=== PATIENT | male | born 1980 | race Caucasian/White ===

== ENCOUNTER 2017-11-02 20:22 | Emergency (ER) | payer OTHER ==
[~2017-11-02] VITALS: Ht 185.4 cm; Wt 117.9 kg
[~2017-11-02 20:22] MED LIST: CYCL10 PO; GABA100 PO; HYDACE10B PO; HYDACE5 PO; HYDR1TAB94 PO; IBUP600 PO; Keflex500 MG PO; METPRE4DP PO; NAPR500; NAPR500EC PO; Naprosyn500 MG PO; Neurontin 300300 MG PO; Norco 10-325 T1 EACH PO; Norco 5-325 Ta1 EACH PO; OXYACE5T PO; OXYC10ER PO; PRED10 PO; Percocet 10-321 EACH PO; Percocet 5-3251 EACH PO; Prednisone20 MG PO; SULTRIDS PO; TRAM50 PO; Zofran8 MG PO
[2017-11-02 20:41] LABS: Source, Urine Clean Catch
[2017-11-02 20:44] LABS: Appearance, Urine Cloudy (Clear); Blood, Urine 5+ (Neg); Color, Urine Yellow (P-Yellow); Glucose Qualitative, Urine Neg (Neg); Ketones, Urine 2+ (Neg); Leukocyte Esterase, Urine 3+ (Neg); Nitrite, Urine Pos (Neg); Protein, Urine 3+ (Neg); Specific Gravity, Urine 1.025 (1.003-1.022); Urobilinogen, Urine 2+ (Normal)
[2017-11-02 20:50] LABS: Bilirubin, Urine 1+ (Neg)
[2017-11-02 20:53] LABS: Bacteria Mod /hpf; Red Blood Cells, Urine 25-50 /hpf (0-2); Squamous Epithelial Cells Few /hpf (Few); White Blood Cells, Urine 50-100 /hpf (0-5)
[2017-11-02 20:54] LABS: Granular Casts 0-2 /lpf ([, 0]); Hyaline Casts 0-2 /lpf (0-2); WBC Cast 0-2 /lpf ([, 0])
[2017-11-02] MEDS ORDERED: Flomax0.4 MG PO (21:28)
[2017-11-02] MEDS ORDERED: Pyridium200 MG PO (21:28)
[2017-11-02] MEDS ORDERED: Cipro500 MG PO (21:28)
== END 2017-11-02 21:59 | disposition home or self-care (01) ==
LOC: ER 20:22
PROVIDERS: Emergency Medicine
DX: N39.0 Urinary tract infection, site not specified (principal); F17.210 Nicotine dependence, cigarettes, uncomplicated
CPT/HCPCS: 81001; 87077; 87086; 87186; 99283

== ENCOUNTER 2019-04-05 14:11 | Emergency (ER) | payer OTHER, MEDICARE ==
[~2019-04-05] VITALS: Ht 185.4 cm; Wt 127.0 kg
[~2019-04-05 14:11] MED LIST changes: +Cipro500 MG PO; +Cymbalta60 MG PO; +Flomax0.4 MG PO; +Pyridium200 MG PO
[2019-04-05] MEDS ORDERED: METH10 PO (14:31)
[2019-04-05] MEDS ORDERED: Amoxicillin500 MG PO (15:48)
[2019-04-05] MEDS ORDERED: IBUP600 PO (15:52)
== END 2019-04-05 15:54 | disposition home or self-care (01) ==
LOC: ER 14:11
DX: S01.511A Laceration without foreign body of lip, initial encounter (principal); W01.198A Fall on same level from slipping, tripping and stumbling with subsequent striking against other object, initial encounter; Z79.52 Long term (current) use of systemic steroids; Z79.899 Other long term (current) drug therapy; F17.200 Nicotine dependence, unspecified, uncomplicated
CPT/HCPCS: 12052; 99282-25

== ENCOUNTER 2022-06-24 11:01 | Emergency (ER) | payer MEDICARE, OTHER ==
[~2022-06-24] VITALS: Ht 188 cm; Wt 122.5 kg
[~2022-06-24 11:01] MED LIST changes: +Amoxicillin500 MG PO; +HYDPAM25 PO; +METH10 PO
[2022-06-24] MEDS ORDERED: Norco 5-325 Ta1 EACH PO (13:10)
== END 2022-06-24 13:16 | disposition home or self-care (01) ==
LOC: ER 11:01
DX: S52.572A Other intraarticular fracture of lower end of left radius, initial encounter for closed fracture (principal); W19.XXXA Unspecified fall, initial encounter; F17.210 Nicotine dependence, cigarettes, uncomplicated; Z79.899 Other long term (current) drug therapy
CPT/HCPCS: 73110

== ENCOUNTER 2024-06-03 14:32 | Emergency (ER) | payer OTHER, MEDICARE ==
[~2024-06-03] VITALS: Ht 185.4 cm; Wt 136.1 kg
[~2024-06-03 14:32] MED LIST changes: +ACET325 PO; +IBU800 M1 PO; +LEVO750 PO; +MIRALAX17 GM PO; +TAMS.4ER PO; +VISBIOME 112.51 EACH PO
[2024-06-03 14:55] VITALS: BP 155/91
[2024-06-03] MEDS ORDERED: Ketorolac Tromethamine 30mg Vial IM ONE (17:20)
[2024-06-03] MEDS ORDERED: OxyCODONE HCL 5 MG TAB PO ONE (17:20)
[2024-06-03] MEDS ORDERED: CYCL10 PO (18:03)
[2024-06-03] MEDS ORDERED: IBUP600 PO (18:03)
== END 2024-06-03 18:22 | disposition home or self-care (01) ==
LOC: ER 14:32
DX: S80.01XA Contusion of right knee, initial encounter (principal); S39.012A Strain of muscle, fascia and tendon of lower back, initial encounter; F17.210 Nicotine dependence, cigarettes, uncomplicated; Z79.899 Other long term (current) drug therapy; W01.0XXA Fall on same level from slipping, tripping and stumbling without subsequent striking against object, initial encounter
CPT/HCPCS: 72100; 73562-RT; 96372; 99283-25; A9270; J1885

== ENCOUNTER → 2025-05-24 | Outpatient (CLI) | payer MEDICARE, OTHER | END | disposition home or self-care (01) | LOC: LAB 09:07 → LAB SHORT 09:07 | DX: L57.0 Actinic keratosis (principal); D49.0 Neoplasm of unspecified behavior of digestive system | CPT/HCPCS: 88305; 88312 ==

== ENCOUNTER 2025-06-17 16:20 | Emergency (ER) | payer MEDICARE, OTHER ==
[~2025-06-17] VITALS: Ht 188 cm; Wt 140.6 kg
[2025-06-17] MEDS ORDERED: HYDROmorphone HCl/Pf 1MG SYR IV ONE ×2 (16:55→19:15)
[2025-06-17] MEDS ORDERED: Ketorolac Tromethamine 15mg Vial IV ONE ×2 (16:55→20:20)
[2025-06-17 17:07] LABS: BASOPHILS ABSOLUTE AUTO 0.08 K/mm3 (0.00-0.23); BASOPHILS PERCENT AUTO 1 % (0-2); EOSINOPHILS ABSOLUTE AUTO 0.01 K/mm3 (0.00-0.68); EOSINOPHILS PERCENT AUTO 0 % (0-6); Hematocrit 53.1 % (37.0-53.0); Hemoglobin 17.7 g/dL (13.5-17.5); IMMATURE GRAN ABSOLUTE AUTO 0.05 K/mm3 (0.00-0.10); IMMATURE GRAN PERCENT AUTO 0 % (0-1); LYMPHOCYTES ABSOLUTE AUTO 1.59 K/mm3 (0.84-5.20); LYMPHOCYTES PERCENT AUTO 13 % (21-46); MONOCYTES ABSOLUTE AUTO 0.44 K/mm3 (0.16-1.47); MONOCYTES PERCENT AUTO 4 % (4-13); Mean Corpuscular HGB Conc 33.3 g/dL (31.5-36.5); Mean Corpuscular Volume 94 fL (80-100); NEUTROPHILS ABSOLUTE AUTO 9.82 K/mm3 (1.96-9.15); NEUTROPHILS PERCENT AUTO 82 % (41-73); NRBC ABSOLUTE 0.00 K/mm3 (0.00-0.02); NRBC Auto 0.0 /100 WBC (0.0-0.2); Platelet Count 403 K/mm3 (150-400); RDW Coefficient Variation 13.9 % (11.7-14.2); RDW Standard Deviation 47.8 fL (35.1-46.3)
[2025-06-17 17:28] LABS: Alanine Aminotransfer (ALT/SGP 42.0 U/L (12-78); Albumin, Blood 4.4 g/dL (3.4-5.0); Albumin/Globulin Ratio 0.9 (0.8-1.8); Anion Gap 8.0 mmol/L (3-11); Aspartate Aminotrans (AST/SGOT 25.0 U/L (12-37); Bilirubin, Total 0.5 mg/dL (0.1-1.0); Blood Urea Nitrogen 9.0 mg/dL (8-24); CO2, Blood 24.0 mmol/L (21-32); Calcium, Blood 9.5 mg/dL (8.5-10.1); Chloride, Blood 106.0 mmol/L (98-108); Creatinine, Blood 0.73 mg/dL (0.60-1.20); Globulin, Blood 4.8 g/dL (2.2-4.0); Glucose, Blood 136.0 mg/dL (70-99); Magnesium, Blood 2.3 mg/dL (1.6-2.4); Potassium, Blood 4.7 mmol/L (3.5-5.5); Sodium, Blood 133.0 mmol/L (136-145); Total Protein, Blood 9.2 g/dL (6.4-8.2)
[2025-06-17 19:23] LABS: Source, Urine Clean Catch
[2025-06-17 19:26] LABS: Bilirubin, Urine Neg (Neg); Color, Urine Yellow (P-Yellow); Glucose Qualitative, Urine Neg (Neg); Ketones, Urine Neg (Neg); Leukocyte Esterase, Urine 1+ (Neg); Protein, Urine 2+ (Neg); Specific Gravity, Urine 1.005 (1.003-1.022); Urobilinogen, Urine 1+ (Normal)
[2025-06-17] MEDS ORDERED: Diazepam 5 MG / ML 2ML SYR IV ONE (20:20)
[2025-06-17 20:31] VITALS: BP 166/102
[2025-06-17] MEDS ORDERED: CEPH500 PO (22:00)
[2025-06-17] MEDS ORDERED: Robaxin750 MG PO (22:00)
== END 2025-06-17 22:15 | disposition home or self-care (01) ==
LOC: ER 16:20
PROVIDERS: Student in an Organized Health Care Education/Training Program
DX: N30.00 Acute cystitis without hematuria (principal); S39.012A Strain of muscle, fascia and tendon of lower back, initial encounter; F17.210 Nicotine dependence, cigarettes, uncomplicated; Z79.899 Other long term (current) drug therapy; W18.30XA Fall on same level, unspecified, initial encounter
CPT/HCPCS: 74177; 80053; 81001; 83690; 83735; 85025; 87086; 96361; 96374-59; 96375; 96376; 99284-25; A9270; J1171; J1885; J3360; J7120; Q9967